=== PATIENT | female | born 1965 | race African-American/Black ===

== ENCOUNTER 2016-07-27 16:42 | Emergency (ER) | payer MEDICAID ==
[~2016-07-27] VITALS: Ht 170.2 cm; Wt 83.9 kg
[2016-07-27 17:22] VITALS: BP 137/85
[2016-07-27] MEDS ORDERED: Acetaminophen 500mg (ES) tab ORAL ONE (18:00)
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
[2016-07-27] MEDS ORDERED: TYLENOL EXTRA500 MG ORAL (18:03)
[2016-07-27] MEDS ORDERED: CYCLOBENZAPRINE10 MG ORAL (18:03)
[2016-07-27 18:15] VITALS: BP 137/85
== END 2016-07-27 18:17 | disposition home or self-care (01) ==
LOC: EMR 18:10
DX: S16.1XXA Strain of muscle, fascia and tendon at neck level, initial encounter (principal); M62.838 Other muscle spasm; I10 Essential (primary) hypertension; V43.12XA Car passenger injured in collision with other type car in nontraffic accident, initial encounter; Y92.414 Local residential or business street as the place of occurrence of the external cause; Y99.8 Other external cause status
CPT/HCPCS: 99282

== ENCOUNTER 2017-05-18 20:54 | Emergency (ER) | payer MEDICAID ==
[~2017-05-18] VITALS: Ht 170.2 cm; Wt 79.4 kg
[~2017-05-18 20:54] MED LIST: CYCLOBENZAPRINE10 MG ORAL; TYLENOL EXTRA500 MG ORAL
[2017-05-18 21:04] VITALS: BP 139/88
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
[2017-05-18] MEDS ORDERED: Methocarbamol 500mg tab ORAL ONE (21:30)
[2017-05-18] MEDS ORDERED: IBUPROFEN600 MG ORAL (21:33)
[2017-05-18] MEDS ORDERED: ROBAXIN500 MG PO (21:33)
[2017-05-18 22:55] VITALS: BP 130/75
--- NOTE | 2017-05-19 12:14 | Diagnostic Imaging Report ---
Indication: pain Findings: 3 views of the left hand were obtained. Normal alignment is demonstrated. No acute fractures, erosions, or periosteal reaction are seen. Soft tissues are unremarkable. Impression: No acute findings.
== END 2017-05-18 22:55 | disposition home or self-care (01) ==
LOC: EMR 21:40
DX: S60.052A Contusion of left little finger without damage to nail, initial encounter (principal); W01.0XXA Fall on same level from slipping, tripping and stumbling without subsequent striking against object, initial encounter; Y93.E9 Activity, other interior property and clothing maintenance; Y92.009 Unspecified place in unspecified non-institutional (private) residence as the place of occurrence of the external cause; M54.5 Low back pain; G89.29 Other chronic pain; I10 Essential (primary) hypertension
CPT/HCPCS: 29130; 99284

== ENCOUNTER 2017-12-30 13:07 | Emergency (ER) | payer MEDICAID ==
[~2017-12-30] VITALS: Ht 170.2 cm; Wt 80.7 kg
[~2017-12-30 13:07] MED LIST changes: +IBUPROFEN600 MG ORAL; +ROBAXIN500 MG PO
[2017-12-30] MEDS ORDERED: LOSARTAN-HCTZ1 EAC2 ORAL (13:53)
[2017-12-30] MEDS ORDERED: CYCLOBENZAPRINE10 MG ORAL (14:31)
[2017-12-30] MEDS ORDERED: LIDOCAINE700 M1 TP (14:31)
[2017-12-30] MEDS ORDERED: IBUPROFEN600 MG ORAL (14:31)
[2017-12-30 14:33] LABS: APPEARANCE,URINE CLEAR; BILIRUBIN, URINE NEGATIVE (NEGATIVE); COLOR,URINE PALE YELLOW; GLUCOSE, URINE (UA) NEGATIVE (NEGATIVE); KETONES,URINE NEGATIVE (NEGATIVE); LEUKOCYTE ESTERASE ,URINE NEGATIVE (NEGATIVE); NITRITE,URINE NEGATIVE (NEGATIVE); PH,URINE 6.5 (4.5-8.0); PROTEIN,URINE NEGATIVE (NEGATIVE); UROBILINOGEN,URINE NORMAL MG/DL (0.0-1.0)
[2017-12-30 14:34] VITALS: BP 118/77
[2017-12-30 16:04] VITALS: BP 115/72
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
== END 2017-12-30 16:00 | disposition home or self-care (01) ==
LOC: EMR 14:47
DX: S16.1XXA Strain of muscle, fascia and tendon at neck level, initial encounter (principal); S60.212A Contusion of left wrist, initial encounter; V43.52XA Car driver injured in collision with other type car in traffic accident, initial encounter; Y92.410 Unspecified street and highway as the place of occurrence of the external cause; I10 Essential (primary) hypertension
CPT/HCPCS: 81003; 99284

== ENCOUNTER 2019-07-03 17:53 | Emergency (ER) | payer MEDICAID ==
[~2019-07-03] VITALS: Ht 170.2 cm; Wt 88.5 kg
[~2019-07-03 17:53] MED LIST changes: +LIDOCAINE700 M1 TP; +LOSARTAN-HCTZ1 EAC2 ORAL
[2019-07-03 18:00] VITALS: BP 130/86
--- NOTE | 2019-07-03 18:13 | NUR ---
ED Nurse Note: Pt walked in to ER from home due to sorethroat, coughing, Rt earache, headache for 3 weeks. pt aao x4 and ambulatory. skin clean and intact, calm and cooperative. no cardiac or pulmonary distress noted at this moment.
[2019-07-03] MEDS ORDERED: TESSALON PERLE100 M2 ORAL (18:29)
[2019-07-03] MEDS ORDERED: FLONASE ALLERG9.9 ML NS (18:29)
--- NOTE | 2019-07-03 18:47 | NUR ---
ED Nurse Note: pt refused to sign on dc paper and requested for PO ATB prescription. ERPA made aware.
[2019-07-03] MEDS ORDERED: PROMETHAZINE-D118 ML ORAL (19:01)
--- NOTE | 2019-07-03 19:04 | NUR ---
HAND-OFF: Report given to PIO Castillo.
[2019-07-03 19:05] VITALS: BP 128/73
--- NOTE | 2019-07-03 19:07 | NUR ---
ED Nurse Note: ERPA spoke to pt and prescribed syrup cough medicine and pt agreed with.
--- NOTE | 2019-07-03 19:07 | NUR ---
ED Nurse Note: Pt cleared by health care Provider for discharge. DC instructions/prescription was given and explained to pt and verbalized understanding of teachings. All medical deviecs such as ID band removed. Pt is AAO x4, ambulatory and left with all personal belongings.
--- NOTE | 2019-07-03 19:33 | Emergency Room Report ---
History of Present Illness General Chief Complaint: Earache Source: Patient, Medical Record Present Illness HPI 54-year-old female complaining of cough, nasal congestion, sore throat, right earache x2 to 3 days. Pain is 3 out of 10, pressure in quality. No relieving or aggravating factors. Denies fever, shortness of breath, chest pain, vomiting , diarrhea, abdominal pain. No flu shot. No sick contacts, no recent travel. She states that she has been getting sick frequently for the last 3 weeks. Symptoms improve and then recurrent. 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[facility] Past Medical History: No History, Except For Hx Hypertension: Yes Review of Systems All Other Systems: negative except mentioned in HPI Physical Exam Vital Signs Date Time Temp Pulse Resp B/P (MAP) Pulse Ox O2 Delivery O2 Flow Rate FiO2 07/03/19 17:59 98.2 78 18 130/86 (101) 98 Room Air Sp02 EP Interpretation: reviewed, normal General Appearance: no apparent distress, alert, GCS 15, non-toxic ENT: hearing grossly normal, normal pharynx, normal voice, uvula midline, nasal congestion - swollen nasal turbinates Neck: full range of motion, supple/symm/no masses Respiratory: chest non-tender, lungs clear, normal breath sounds, speaking full sentences Cardiovascular #1: normal inspection Neurologic: alert, motor strength/tone normal, oriented x3, sensory intact, responsive, speech normal Skin: no rash, warm/dry Medical Decision Making PA Attestation This patient was seen under the direct supervision of Dr. Talbot, who directed all aspects of care and diagnostic interpretation. Diagnostic Impression: Primary Impression: URI (upper respiratory infection) ER Course ED course HPI: 54-year-old female complaining of cough, nasal congestion, sore throat, right earache x2 to 3 days. Pain is 3 out of 10, pressure in quality. No relieving or aggravating factors. Denies fever, shortness of breath, chest pain, vomiting , diarrhea, abdominal pain. No flu shot. No sick contacts, no recent travel. She states that she has been getting sick frequently for the last 3 weeks. Symptoms improve and then recurrent. Ddx: URI, otitis media, pharyngitis HPI & PE consistent with: URI Orders/ Interventions: Benign physical exam. No labs or imaging indicated. No signs or symptoms of bacterial infection. Discussed with patient symptoms are likely viral etiology, no antibiotics are indicated. Disposition: Patient discharged with prescription for flonase, tessalon, and promethazine-dm. At this time pt. is stable for d/c to home. Will provide printed patient care instructions, and any necessary prescriptions. Care plan and follow up instructions have been discussed with the patient prior to discharge. Please note that this Emergency Department Report was dictated using [employer] rolling machine operator technology software, occasionally this can lead to erroneous entry secondary to interpretation by the dictation equipment. Last Vital Signs Date Time Temp Pulse Resp B/P (MAP) Pulse Ox O2 Delivery O2 Flow Rate FiO2 07/03/19 19:05 97.8 70 18 128/73 98 Room Air Disposition: HOME, SELF-CARE Condition: Stable Scripts D-Methorphan Hb/Prometh Hcl* (PROMETHAZINE-DM SYRUP*) 118 Ml Syrup 5 ML ORAL Q6H PRN for For Cough, #120 ML 0 Refills Prov: Alicia Montilla 07/03/19 Benzonatate (Tessalon Perle) 100 Mg Capsule 100 MG ORAL THREE TIMES A DAY, #20 PERLE Prov: Alicia Montilla 07/03/19 Fluticasone Propionate (Flonase Allergy Relief) 9.9 Ml [place].susp 2 SPR NS BEDTIME, #1 SPR Prov: Alicia Montilla 07/03/19 Referrals: NON PHYSICIAN (PCP) Patient Instructions: Upper Respiratory Infection, Adult, [id number] Additional Instructions: Follow-up with PCP in 2 days or return to ER if worsening symptoms, new symptoms or sudden change in condition. Alicia Montilla Jul 03, 2019 19:33
== END 2019-07-03 19:05 | disposition home or self-care (01) ==
LOC: EMR 18:15
DX: J06.9 Acute upper respiratory infection, unspecified (principal); I10 Essential (primary) hypertension; Z87.891 Personal history of nicotine dependence
CPT/HCPCS: 99282